=== PATIENT | male | born 1975 | race Two or more races ===

== ENCOUNTER 2016-10-21 14:31 | Emergency (ER) | payer SELFPAY ==
[2016-10-21 14:42] VITALS: BP 181/91
[2016-10-21] MEDS ORDERED: Ketorolac 60 MG/2 ML SDV IM ONE (14:52)
--- NOTE | 2016-10-21 14:56 | EDM.PDOC ---
ED HPI GENERAL MEDICAL PROBLEM - General Chief Complaint: Back Pain or Injury Stated Complaint: BACK PAIN Time Seen by Provider: 10/21/16 14:49 - History of Present Illness INITIAL COMMENTS - FREE TEXT/NARRATIVE: HISTORY AND PHYSICAL: History of present illness: Patient's a 41-year-old male who presents with a concern of low back pain he states this occurred when he was at work and a small compartment in tweaked his back he's had prior back surgery 2 he denies numbness weakness incontinence or retention of bowel or bladder he has not taken anything for this pain he states he got worse when he aggravated today while swinging a sledgehammer Review of systems: As per history of present illness and below otherwise all systems reviewed and negative. Past medical history: As per history of present illness and as reviewed below otherwise noncontributory. Surgical history: As per history of present illness and as reviewed below otherwise noncontributory. Social history: No reported history of drug or alcohol abuse. Family history: As per history of present illness and as reviewed below otherwise noncontributory. Physical exam: HEENT: Atraumatic, normocephalic, pupils reactive, negative for conjunctival pallor or scleral icterus, mucous membranes moist, throat clear, neck supple, nontender, trachea midline. Lungs: Clear to auscultation, breath sounds equal bilaterally, chest nontender. Heart: S1S2, regular, negative for clicks, rubs, or JVD. Abdomen: Soft, nondistended, nontender. Negative for masses or hepatosplenomegaly. Negative for costovertebral tenderness. Pelvis: Stable nontender. Genitourinary: Deferred. Rectal: Deferred. Extremities: Atraumatic, negative for cords or calf pain. Neurovascular unremarkable. Neuro: Awake, alert, oriented. Cranial nerves II through XII unremarkable. Cerebellum unremarkable. Motor and sensory unremarkable throughout. Exam nonfocal. Back: Patient has tenderness and spasm in the paravertebral region level lumbar spine no vertebral body or point tenderness patient is able stand on his toes back on his heels motor and sensory are unremarkable Diagnostics: X-ray lumbosacral spine Therapeutics: Toradol 60 mg IM Impression: #1 acute lumbosacral strain #2 history of chronic back pain Definitive disposition and diagnosis as appropriate pending reevaluation and review of above. mid-back Pain Score (Numeric/FACES): 9 - Related Data Allergies Allergy/AdvReac Type Severity Reaction Status Date / Time No Known Allergies Allergy Verified 10/21/16 14:37 Home Meds: Home Meds . [No Known Home Meds] 10/21/16 [History] Past Medical History - Past Health History Medical/Surgical History: Denies Medical/Surgical History - Past Surgical History Musculoskeletal Surgical History: Reports: Other (See Below) Other Musculoskeletal Surgeries/Procedures:: Back sx; degenerative ds Social & Family History - Family History Family Medical History: Noncontributory Oncologic: Reports: Skin, Other (See Below) Other Oncologic Family History: melanoma-mother - Tobacco Use Smoking Status *Q: Current Every Day Smoker Years of Tobacco use: 20 Packs/Tins Daily: 1 - Recreational Drug Use Recreational Drug Use: No ED ROS GENERAL - Review of Systems Review Of Systems: ROS reveals no pertinent complaints other than HPI. ED EXAM, GENERAL - Physical Exam Exam: See Below (See dictation) Course - Vital Signs Last Recorded V/S: Last Vital Signs Temp 36.2 C 10/21/16 14:37 Pulse 86 10/21/16 14:37 Resp 18 10/21/16 14:37 BP 181/91 H 10/21/16 14:37 Pulse Ox 98 10/21/16 14:37 - Orders/Labs/Meds Orders: Active Orders 24 hr Category Date Time Status Lumbar Spine 2 or 3V [CR] Stat Exams 10/21/16 14:52 Ordered Meds: Medications Discontinued Medications Generic Name Dose Route Start Last Admin Trade Name Freq PRN Reason Stop Dose Admin Ketorolac Tromethamine 60 mg 10/21/16 14:52 10/21/16 14:58 Toradol IM 10/21/16 14:53 60 mg ONETIME ONE Administration Departure - Departure Time of Disposition: 15:41 Disposition: Home, Self-Care 01 Condition: Good Clinical Impression: Lumbosacral strain, Chronic back pain - Discharge Information Forms: ED Department Discharge Additional Instructions: The following information is given to patients seen in the emergency department who are being discharged to home. This information is to outline your options for follow-up care. We provide all patients seen in our emergency department with a follow-up referral. The need for follow-up, as well as the timing and circumstances, are variable depending upon the specifics of your emergency department visit. If you don't have a primary care physician on staff, we will provide you with a referral. We always advise you to contact your personal physician following an emergency department visit to inform them of the circumstance of the visit and for follow-up with them and/or the need for any referrals to a consulting specialist. The emergency department will also refer you to a specialist when appropriate. This referral assures that you have the opportunity for followup care with a specialist. All of these measure are taken in an effort to provide you with optimal care, which includes your followup. Under all circumstances we always encourage you to contact your private physician who remains a resource for coordinating your care. When calling for followup care, please make the office aware that this follow-up is from your recent emergency room visit. If for any reason you are refused follow-up, please contact the [facility] emergency department at and asked to speak to the emergency department charge nurse. Follow-up primary medical doctor 1-2 days Ultram Medrol Flexeril as prescribed return as needed as discussed - My Orders Last 24 Hours: My Active Orders 10/21/16 14:52 Lumbar Spine 2 or 3V [CR] Stat - Assessment/Plan Last 24 Hours: My Active Orders 10/21/16 14:52 Lumbar Spine 2 or 3V [CR] Stat
--- NOTE | 2016-10-21 16:16 | CR ---
EXAMINATION: Lumbar spine HISTORY: Pain COMPARISON: None TECHNIQUE: AP and lateral views FINDINGS: The lumbar spinal alignment is grossly normal. The vertebral body heights and disc spaces appear well-maintained. No fracture or dislocation. The SI joints are symmetric. IMPRESSION: Unremarkable lumbar spine.
== END 2016-10-21 17:00 | disposition home or self-care (01) ==
LOC: MERGE 14:31 → MW.ED 14:31 → EDBD 14:31 → MW.ED 17:00
DX: S39.012A Strain of muscle, fascia and tendon of lower back, initial encounter (principal); F17.210 Nicotine dependence, cigarettes, uncomplicated; X58.XXXA Exposure to other specified factors, initial encounter; Y99.0 Civilian activity done for income or pay
CPT/HCPCS: 72100; 96372; 99283; J1885; 99282